=== PATIENT | male | born 1995 | race Caucasian/White ===

== ENCOUNTER 2017-08-15 15:23 | Emergency (ER) | payer BC ==
[~2017-08-15] VITALS: Ht 177.8 cm; Wt 75.0 kg
[2017-08-15 15:28] VITALS: BP 142/94; Ht 177.8 cm; Wt 75.0 kg
== END 2017-08-15 16:13 | disposition home or self-care (01) ==
LOC: ED 15:23
DX: G89.29 Other chronic pain (principal); M54.5 Low back pain; R03.0 Elevated blood-pressure reading, without diagnosis of hypertension; Z88.0 Allergy status to penicillin
CPT/HCPCS: J1885

== ENCOUNTER 2017-08-20 02:35 | Emergency (ER) | payer BC ==
[~2017-08-20] VITALS: Ht 175.3 cm; Wt 76.7 kg
[2017-08-20 02:48] VITALS: Ht 175.3 cm; Wt 76.7 kg
[2017-08-20 04:08] VITALS: BP 118/63
== END 2017-08-20 04:08 | disposition home or self-care (01) ==
LOC: ED 02:35
DX: G89.29 Other chronic pain (principal); M54.9 Dorsalgia, unspecified; Z88.0 Allergy status to penicillin